=== PATIENT | male | born 1965 | race Caucasian/White ===

== ENCOUNTER 2021-03-30 21:57 | Emergency (ER) | payer OTHER ==
[~2021-03-30] VITALS: Ht 175.3 cm; Wt 74.8 kg
--- NOTE | 2021-03-30 22:06 | NUR ---
PT TAKEN TO BED 9
[2021-03-30 22:07] VITALS: BP 140/102
--- NOTE | 2021-03-30 22:25 | NUR ---
55 YO/M BIB SELF W CRUTCHES W C/O R HIP PAIN RADIATING TO R KNEE 10/10 SHARP/DULL CONSTANT, WORSENS W MOVEMENT OR WALKING X3 DAYS WORSENING TODAY. PATIENT REPORTS TAKING APPROX 10 TABS OF IBUPROFEN OF APPROX [phone] APPROX 4 HOURS AGO W/O RELIEF OF PAIN. PATIENT REPORTS UNABLE TO AMBULATE D/T PAIN. PATIENT DENIES ANY INJURIES. PATIENT RELATES PAIN TO HIS HX OF SCIATICA PAIN. PEDAL PULSES +2, CAP REFIL TOES <3 SEC. PATIENT LAYING IN BED L LATERAL POSTION. BED LOCKED IN LOWEST POSITION W X1 SIDERAIL UP. NAD NOTED, WILL CONTINUE TO MONITOR. PMH:SCIATICA PAIN ALLERGIES: CODEINE, MORPHINE
--- NOTE | 2021-03-30 22:25 | NUR ---
PATIENT ABLE TO MOVE R LEG W FULL ROM. NORMAL STRENGTH.
[2021-03-30] MEDS ORDERED: ACETAMINOPHEN EXTRA STRENGTH 500 MG TAB PO ONE (22:40)
[2021-03-30] MEDS ORDERED: GABAPENTIN 300 MG CAP PO ONE (22:45)
--- NOTE | 2021-03-30 22:56 | NUR ---
Dr. Sheets examining patient.
[2021-03-30] MEDS ORDERED: IBUP-2213 PO (23:03)
[2021-03-30] MEDS ORDERED: ACET-10509 PO (23:03)
[2021-03-30] MEDS ORDERED: GABA300S PO (23:03)
[2021-03-30] MEDS ORDERED: LID5T TP (23:03)
[2021-03-30 23:44] VITALS: BP 149/80
--- NOTE | 2021-03-30 23:44 | NUR ---
Patient discharged with v/s stable. Written and verbal after care instructions given and explained. Patient alert, oriented and verbalized understanding of instructions. Ambulatory with steady gait. All questions addressed prior to discharge. ID band removed. Patient advised to follow up with PMD. Rx of TYLENOL EXTRA STRENGTH, GABAPENTIN, IBUPROFEN, LIDODERM PATCH 5% given. Patient educated on indication of medication including possible reaction and side effects. Opportunity to ask questions provided and answered.
== END 2021-03-30 23:44 | disposition home or self-care (01) ==
LOC: MED 21:57
DX: M54.41 Lumbago with sciatica, right side (principal); Z88.5 Allergy status to narcotic agent; Z79.899 Other long term (current) drug therapy
CPT/HCPCS: 99283

== ENCOUNTER 2021-08-25 22:00 | Emergency (ER) | payer OTHER ==
[~2021-08-25] VITALS: Ht 175.3 cm; Wt 68.5 kg
[~2021-08-25 22:00] MED LIST: ACET-10509 PO; GABA300S PO; IBUP-2213 PO; LID5T TP
[2021-08-25 22:27] VITALS: BP 145/88
--- NOTE | 2021-08-25 22:30 | NUR ---
PT TAKEN TO BED 8
--- NOTE | 2021-08-25 22:43 | NUR ---
56 Y/O MALE BIB SELF, C/O PAIN TO RIGHT TESTICLE X2 DAYS. PATIENT PRESENTS TO ED WITH REDNESS AND SWELLING. PT STATES THERE HAS BEEN NO TRAUMA OR CAUSATIVE FACTOR THAT HE COULD THINK OF TO CAUSE THE PAIN; RADIATES TO STOMACH, UNPROVOKED, THROBBING SENSATION, DOES NOT AFFECT URINATION BUT DOES AFFECT ADLs. DENIES N/V/D; SKIN IS PINK/WARM/DRY; AAOX4 WITH EVEN AND STEADY GAIT; HR EVEN AND REGULAR; PT DENIES ANY FEVER, CP, SOB, OR COUGH AT THIS TIME; PATIENT STATES PAIN OF 10/10 AT THIS TIME; VSS; PATIENT POSITIONED FOR COMFORT; HOB ELEVATED; BEDRAILS UP X1; BED DOWN. ER MD MADE AWARE OF PT STATUS. HX: HEP-C, CHOLECYTECTOMY, APPENDECTOMY, DRUG USE ALLERGIES TO MORPHINE AND CODEINE DENIES MEDS
--- NOTE | 2021-08-25 22:47 | NUR ---
ER EXAMINING PT
[2021-08-25] MEDS ORDERED: HYDROmorphone PFS 2 MG/ML SYR IVP ONE (22:55)
--- NOTE | 2021-08-25 23:05 | NUR ---
LAB AT BEDSIDE TO COLLECT BLOOD SAMPLE
[2021-08-25 23:11] LABS: APPEARANCE,URINE CLOUDY (CLEAR); BILIRUBIN,URINE NEGATIVE (NEGATIVE); BLOOD, URINE NEGATIVE (NEGATIVE); COLOR,URINE YELLOW (YELLOW); LEUKOCYTE ESTERASE ,URINE 2+ (NEGATIVE); NITRITE, URINE NEGATIVE (NEGATIVE); UGLUCOSE NEGATIVE (NEGATIVE)
[2021-08-25 23:12] LABS: BASOPHILS % (AUTO) 0.4 % (0.0-2.0); EOSINOPHILS # (AUTO) 0.3 K/uL (0-0.4); EOSINOPHILS % (AUTO) 2.6 % (0.0-4.0); HEMATOCRIT 43.1 % (36-52); HEMOGLOBIN 14.7 g/dL (12.0-18.0); LYMPHOCYTES # (AUTO) 1.3 K/uL (2.0-11.5); LYMPHOCYTES % (AUTO) 9.6 % (20.5-51.1); MEAN CORPUSCULAR HEMOGLOBIN 29 pg (27-31); MEAN CORPUSCULAR HGB CONC 34 g/dL (33-37); MEAN CORPUSCULAR VOLUME 84.8 fL (80-94); MONOCYTES # (AUTO) 1.2 K/uL (0.8-1.0); MONOCYTES % (AUTO) 9.3 % (1.7-9.3); NEUTROPHILS # (AUTO) 10.4 K/uL (1.8-7.7); NEUTROPHILS % (AUTO) 78.1 % (42.2-75.2); PLATELET COUNT (AUTO) 348 K/uL (140-450); RED BLOOD CELL COUNT(AUTO) 5.08 MIL/uL (4.20-6.10); RED CELL DISTRIBUTION WIDTH 13.3 % (11.6-13.7); WHITE BLOOD COUNT (AUTO) 13.3 K/uL (4.8-10.8)
[2021-08-25 23:25] LABS: RBC,URINE 0-5 /HPF (0-5); WBC,URINE TOO MANY TO COUNT /HPF (0-5)
--- NOTE | 2021-08-25 23:30 | NUR ---
Ultrasound at bedside.
[2021-08-26 00:13] LABS: ALBUMIN 3.1 g/dL (3.4-5.0); ANION GAP 10.3 (8-16); CARBON DIOXIDE 29.6 mmol/L (21-32); CREATININE 0.8 mg/dL (0.6-1.3); POTASSIUM 3.9 mmol/L (3.5-5.1); TOTAL BILIRUBIN 0.8 mg/dL (0.0-1.0)
[2021-08-26] MEDS ORDERED: HYDROmorphone PFS 2 MG/ML SYR IVP ONE (01:15)
[2021-08-26] MEDS ORDERED: LEVO750T51 PO (02:03)
[2021-08-26] MEDS ORDERED: cefTRIAXone 1,000 MG VIAL ONE (02:14)
--- NOTE | 2021-08-26 02:57 | NUR ---
Patient discharged with v/s stable. Written and verbal after care instructions given and explained. Patient alert, oriented and verbalized understanding of instructions. Ambulatory with steady gait. All questions addressed prior to discharge. ID band removed. Patient advised to follow up with PMD. Rx of Levofloxacin given. Patient educated on indication of medication including possible reaction and side effects. Opportunity to ask questions provided and answered. VSS, A/OX4, AMBULATORY, UNLABORED BREATHING, AND CALM DEMEANOR.
[2021-08-26 02:58] VITALS: BP 145/88
== END 2021-08-26 02:57 | disposition home or self-care (01) ==
LOC: MED 22:00
DX: N45.1 Epididymitis (principal); Z88.5 Allergy status to narcotic agent; Z90.49 Acquired absence of other specified parts of digestive tract; Z79.899 Other long term (current) drug therapy; Z86.19 Personal history of other infectious and parasitic diseases
CPT/HCPCS: 36415; 76870; 80053; 81001; 85025; 87086; 87491; 96365; 96375; 99284; J0696; J1170; Q0092

== ENCOUNTER 2021-12-15 23:14 | Emergency (ER) | payer OTHER ==
[~2021-12-15] VITALS: Ht 175.3 cm; Wt 72.6 kg
[~2021-12-15 23:14] MED LIST changes: +LEVO750T51 PO
[2021-12-15 23:39] VITALS: BP 151/97
--- NOTE | 2021-12-15 23:45 | NUR ---
PT AMBULATORY TO BED 05.
[2021-12-16] MEDS ORDERED: KETOROLAC 15 MG/ML VIAL IM ONE
[2021-12-16] MEDS ORDERED: LIDOCAINE 2% 1000 MG/50 ML VIAL INJ ONE (00:10)
--- NOTE | 2021-12-16 01:00 | NUR ---
56 YO M BIB SELF FOR HAND LACERATION AT WORK TODAY AT 1500. PT CUT ON MIDDLEWARE DEVELOPER TOOL. PT TOOK NO PAIN MEDS. PT WENT TO [facility] BUT THEY ONLY GAVE TYLENOL. PT HAS EVEN AND STEADY GAIT. PT HAS NO PMH PT IS ALLERGIC TO MORPHINE AND CODEINE. HE GETS [facility] CRAM[facility].
[2021-12-16 01:20] VITALS: BP 144/87
== END 2021-12-16 02:09 | disposition left against medical advice (07) ==
LOC: MED 23:14
DX: S61.421A Laceration with foreign body of right hand, initial encounter (principal); F17.200 Nicotine dependence, unspecified, uncomplicated; Z79.899 Other long term (current) drug therapy; Z88.5 Allergy status to narcotic agent; W45.8XXA Other foreign body or object entering through skin, initial encounter; Y93.89 Activity, other specified; Y92.89 Other specified places as the place of occurrence of the external cause; Y99.8 Other external cause status
CPT/HCPCS: 73130; 96372; 99283; J1885; Q0092; J2001

== ENCOUNTER 2022-01-11 02:00 | Emergency (ER) | payer OTHER ==
[~2022-01-11] VITALS: Ht 175.3 cm; Wt 67.4 kg
[2022-01-11 02:07] VITALS: BP 135/80
--- NOTE | 2022-01-11 02:11 | NUR ---
PT TO [facility].
--- NOTE | 2022-01-11 02:14 | NUR ---
DR. MAURER EXAMINING PT
--- NOTE | 2022-01-11 02:21 | NUR ---
PT MOVED TO BED 11
[2022-01-11] MEDS ORDERED: HYDROcodone/APAP 5/325 MG 1 TAB TAB PO ONE (02:35)
[2022-01-11] MEDS ORDERED: IBUPROFEN 800 MG TAB PO ONE (02:35)
[2022-01-11] MEDS ORDERED: SULFAMETH/TRIMETH DS 800/160MG 1 TAB PO ONE (02:35)
[2022-01-11] MEDS ORDERED: IBUP-2218 PO (02:41)
[2022-01-11] MEDS ORDERED: HYDR-5080 PO (02:41)
[2022-01-11] MEDS ORDERED: SULF-59 PO (02:41)
[2022-01-11 03:25] VITALS: BP 124/82
== END 2022-01-11 03:25 | disposition home or self-care (01) ==
LOC: MED 02:00
DX: L02.511 Cutaneous abscess of right hand (principal); Z79.891 Long term (current) use of opiate analgesic; Z79.1 Long term (current) use of non-steroidal anti-inflammatories (NSAID); Z79.2 Long term (current) use of antibiotics; Z79.899 Other long term (current) drug therapy; Z88.5 Allergy status to narcotic agent
CPT/HCPCS: 99284